=== PATIENT | male | born 1970 | race Two or more races ===

== ENCOUNTER 2017-01-11 16:19 | Emergency (ER) | payer OTHER ==
[~2017-01-11] VITALS: Ht 165.1 cm; Wt 65.8 kg
[2017-01-11] MEDS ORDERED: TDAP [DIPH/PERTUSSIS/TET] 0.5 ML VIAL IM STA (16:29)
[2017-01-11] MEDS ORDERED: LIDOCAINE 1%-EPI 1:100,000 50 ML VIAL IJ ONE (16:30)
--- NOTE | 2017-01-11 16:32 | NUR ---
PT BIB PD TO ER BED 11. PRESENTS W/ 2 TASER BARBS LODGE TO RT SIDE UPPER BODY. PT DENIES PAIN. [employer]M. [employer]. DENIES CHEST PAIN. AWAITING MD GARZA.
--- NOTE | 2017-01-11 16:35 | NUR ---
EMILEE LOPEZ AT BEDSIDE FOR EVAL.
[2017-01-11] MEDS ORDERED: TDAP [DIPH/PERTUSSIS/TET] 0.5 ML VIAL IM ONE (16:42)
--- NOTE | 2017-01-11 17:28 | NUR ---
TASER BARBS REMOVED BY EMILEE LOPEZ. TOLERATED PROCEDURE WELL. D/C TO PD IN STABLE CONDITION.
[2017-01-11 17:31] VITALS: BP 142/87
== END 2017-01-11 17:32 ==
LOC: ER 16:23
DX: S30.851A Superficial foreign body of abdominal wall, initial encounter (principal); Z88.0 Allergy status to penicillin; X58.XXXA Exposure to other specified factors, initial encounter; Y93.89 Activity, other specified; Y92.89 Other specified places as the place of occurrence of the external cause; Y99.9 Unspecified external cause status
CPT/HCPCS: 90715; A4606; J3490; Z7610